=== PATIENT | male | born 1990 | race Caucasian/White ===

== ENCOUNTER 2021-10-19 00:19 | Emergency (ER) | payer MEDICAID ==
[~2021-10-19] VITALS: Ht 182.9 cm; Wt 83.9 kg
--- NOTE | 2021-10-19 00:45 | NUR ---
PATIENT BIBRA60 C/O BEING FOUND IN FRONT OF APARTMENT OD ON FENTANYL THINKING IT WAS COCAINE. 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 PATIENT A/O X 4, RR EVEN AND UNLABORED, NO SOB NOTED. PATIENT TAKEN TO ER BED 15. PATIENT CONNECTED TO MONITORS.
--- NOTE | 2021-10-19 00:46 | NUR ---
[employer] AT BEDSIDE
--- NOTE | 2021-10-19 02:06 | NUR ---
[facility] AT BEDSIDE
[2021-10-19 02:18] LABS: BASOPHILS % (AUTO) 0.3 % (0.0-2.0); EOSINOPHILS % (AUTO) 3.5 % (0.0-6.0); HEMATOCRIT 49 % (39-51); HEMOGLOBIN 16.7 g/dL (13.5-17.5); LYMPHOCYTES # (AUTO) 1.1 K/uL (0.8-4.8); LYMPHOCYTES % (AUTO) 11.8 % (20.0-44.0); MEAN CORPUSCULAR HGB CONC 34 g/dl (31.0-36.0); MEAN CORPUSCULAR VOLUME 90 fL (80-96); MONOCYTES # (AUTO) 0.5 K/uL (0.1-1.30); MONOCYTES % (AUTO) 5.3 % (2.0-12.0); NEUTROPHILS # (AUTO) 7.2 K/uL (1.8-8.9); NEUTROPHILS % (AUTO) 79.1 % (43.0-81.0); PLATELET COUNT (AUTO) 195 K/uL (150-450); RED BLOOD CELL COUNT(AUTO) 5.41 MIL/uL (4.5-6.0); WHITE BLOOD COUNT (AUTO) 9.1 K/uL (4.3-11.0)
[2021-10-19 02:34] LABS: CALCIUM, SERUM 8.7 mg/dL (8.5-10.1); CARBON DIOXIDE 30 mmol/L (21-32); CHLORIDE 104 mmol/L (98-107); CREATININE 1.1 mg/dL (0.6-1.3); GLUCOSE 203 mg/dL (74-106); SODIUM SERUM 141 mmol/L (136-145); UREA NITROGEN, BLOOD 17 mg/dL (7-18)
[2021-10-19 02:43] LABS: ALANINE AMINOTRANSFERASE 63 U/L (12-78); ALBUMIN 4.2 g/dL (3.4-5.0); ALKALINE PHOSPHATASE 66 U/L (46-116); ASPARTATE AMINOTRANSFERASE 50 U/L (15-37); BILIRUBIN,DIRECT 0.1 mg/dL (0.0-0.2); BILIRUBIN,TOTAL 0.3 mg/dL (0.2-1.0); TOTAL PROTEIN, SERUM 8.4 g/dL (6.4-8.2)
[2021-10-19 02:44] LABS: ACETAMINOPHEN 0 ug/ml (10-30); ALCOHOL, BLOOD < 3 mg/dL (0-0)
[2021-10-19] MEDS ORDERED: NALOXONE HCL 0.4 MG/ML AMPUL ONE ×2 (06:43→07:49)
[2021-10-19] MEDS ORDERED: NALOXONE HCL 0.4 MG/ML AMPUL IM ONE (07:00)
[2021-10-19] MEDS ORDERED: NALOXONE HCL 0.4 MG/ML AMPUL IV ONE (08:00)
[2021-10-19] MEDS ORDERED: NALOXONE HCL 4 MG in IV NS 0.9% 240 ML IV PRN (08:00)
--- NOTE | 2021-10-19 08:05 | NUR ---
STARTED ON NARCAN INF. 0.4MG/ HR 26.5MLS/HR.
--- NOTE | 2021-10-19 08:45 | NUR ---
NARCAN INF. TITRATED DOWN TO 0.2MG/HR 13.25MLS/HR
--- NOTE | 2021-10-19 10:20 | NUR ---
KETTY- Girlfriend: [phone]
--- NOTE | 2021-10-19 10:49 | NUR ---
SS Note: Entry Level Truck Driver was called to evaluate this pt. who is a 30-year-old White male who demonstrates adequate insight to the reason for hospitalization. Pt. was given Narcan. Per EMR, pt. was found in front of apartment, overdose on Fentanyl. Per pt., he thought it was cocaine. Pt. was oriented x2-3, alert, and was hardly cooperative. Pt. kept dosing off. During interview, pt. was capable of following directions and appeared unkempt. Pt.'s speech was at a normal rate and pt.'s mood was elevated. Pt. reported no hx of mental health, substance abuse, suicidal ideation, or homicidal ideation. Pt. denies auditory hallucinations, visual hallucinations, paranoia, or delusions. SW explored pt.'s living situation. Per pt., he lives with his brother [[address] [place] [address]], pt. was able to confirm address. Entry Level Truck Driver provided him with resources [facility]: [address] [place] [address]- [phone], [facility]: [address] [place] [phone], and [facility]: [address] [place] [address]: [phone]. Pt. stated that he will present at [facility]. warehouse assembly worker provided support with motivational interviewing, education regarding opioid dependence, brief intervention, and referral to treatment. Pt. appears to be in the pre-contemplation phase of change with his substance dependence. Plan: Pt. will return home with his brother. Pt. stated that he wants his girlfriend [Chelita [phone]] to pick pt. up., SW notified girlfriend. Report was given to Dr. Monroy. Resources Provided: [facility]: [address] [place] [address] Intake hours: 5:45am-9:00am, walk-ins Friday, Friday, [facility]: [address] [id number] Intake hours: 5:45am-12:30pm, Friday and [facility]: [address] [place] [address] Intake hours: 8:00am-2:00pm, Friday through Friday Substance Abuse resources provided included: [facility] Substance Abuse Self-Helpline ([facility]) ; [facility] [address] [facility] [place] [id number] ; [facility] [address] [facility] [address] ; [facility] [address] [facility] [address] ; [facility] [address] [facility] [id number] ; [facility] [address] [facility] [address] ; [facility] [address] [facility]. [facility] [address] ; [facility] Substance Abuse Helpline([facility] ; [facility] ; [facility]; [facility]; [facility] [place]; [facility] [place]; [facility] [place]; [facility] [place]; [facility]; [facility] [employer] [place]; Alcoholics [facility]; [facility] ; Marijuana [facility]; Narcotics Anonymous www.na.org;
--- NOTE | 2021-10-19 11:20 | NUR ---
PATIENT HAS APNEA FOR 5SEC. DESATURATES TO 90% DR. MORRISON AWARE ORDERS TO INCREASE NARCAN INF. TO 0.4MG/HR CARRIED OUT
--- NOTE | 2021-10-19 14:30 | NUR ---
O2 4LIT. VIA NC D/C SATURATING AT 95%RA TO CONTINUE MONITORING.
--- NOTE | 2021-10-19 18:20 | NUR ---
NARCAN INFUSSION D/C ORDERED BY DR DEL TORO TO CONTINUE MONITOR AND FOR OBSERVATION.
[2021-10-19] MEDS ORDERED: ONDANSETRON HCL/PF 4 MG/2 ML VIAL ONE (18:23)
[2021-10-19] MEDS ORDERED: ONDANSETRON HCL/PF 4 MG/2 ML VIAL IV ONE (18:30)
[2021-10-19] MEDS ORDERED: NALO4SPR BNOSTRILS (21:10)
--- NOTE | 2021-10-19 21:46 | NUR ---
PT GF AT ER TO PICK PT UP.
--- NOTE | 2021-10-19 21:48 | NUR ---
PT OK TO BE DISCHARGED PER DR DEL TORO. IV removed. Catheter intact and site benign. Pressure and 4x4 applied to site. No bleeding noted.Patient discharged to home in stable condition. Written and verbal after care instructions given. Patient verbalizes understanding of instruction.Patient is awake and alert to self, day, and place. PT ambulatory with a steady gait
[2021-10-19 23:07] VITALS: BP 118/71
== END 2021-10-19 21:50 | disposition home or self-care (01) ==
LOC: ER 00:21
DX: T40.411A Poisoning by fentanyl or fentanyl analogs, accidental (unintentional), initial encounter (principal); Z88.8 Allergy status to other drugs, medicaments and biological substances; Y92.89 Other specified places as the place of occurrence of the external cause
CPT/HCPCS: 80048; 80076; 80143; 80307; 80320; 85025; 93005; 96365; 96375; 99284; J2310 ×3; J2405; J7030; J7050; 36415; G0480